=== PATIENT | female | born 1960 | race Caucasian/White ===

== ENCOUNTER → 2018-10-28 | Outpatient (CLI) | payer OTHER ==
--- NOTE | 2018-10-29 16:00 | RAD ---
DATE: 10/28/2018 EXAM: MAMMO RIVKA SCREENING BILATERAL HISTORY: Routine screening COMPARISON: None This study was interpreted with the benefit of Computerized Aided Detection (CAD). Breast Density: SCATTERED The breast parenchyma shows scattered fibroglandular densities. Breast parenchyma level B. FINDINGS: No suspicious calcification cluster. No masses or distortion. IMPRESSION: No suspicious process. BI-RADS CATEGORY: 1 NEGATIVE RECOMMENDED FOLLOW-UP: 12M 12 MONTH FOLLOW-UP PQRS compliance statement: Patient information was entered into a reminder system with a target due date in one year for the next mammogram. Mammography is a sensitive method for finding small breast cancers, but it does not detect them all and is not a substitute for careful clinical examination. A negative mammogram does not negate a clinically suspicious finding and should not result in delay in biopsying a clinically suspicious abnormality. "Our facility is accredited by the [employer] Mammography Program."
== END | disposition home or self-care (01) ==
LOC: MAMMO 09:20
PROVIDERS: ATTEND Family Medicine
DX: Z12.31 Encounter for screening mammogram for malignant neoplasm of breast (principal)
CPT/HCPCS: 77063; 77067

== ENCOUNTER → 2020-03-22 | Outpatient (CLI) | payer OTHER | LOC: LAB 09:42 | PROVIDERS: ATTEND Family Medicine | DX: Z20.828 Contact with and (suspected) exposure to other viral communicable diseases (principal) | CPT/HCPCS: U0003 ==

== ENCOUNTER 2020-03-26 18:04 | Emergency (ER) | payer OTHER ==
[~2020-03-26] VITALS: Ht 165.1 cm; Wt 95.5 kg
[2020-03-26 18:23] VITALS: BP 130/75
--- NOTE | 2020-03-26 18:35 | PHYS DOC ---
General Adult EDM: Chief Complaint: FLANK PAIN HPI: HPI: History obtained from patient. Patient is a 60-year-old female past medical history significant for hysterectomy, appendectomy, kidney stones who presents with chief complaint of right-sided flank pain. Patient states the pain started approximately 1 week ago. States it began slowly. She notes pain started as a cramp but is not sharp in nature. States it is in her right lower back and radiates to her right groin. Notes it feels similar to previous infections and kidney stones. She notes her last kidney stone was almost 10 years ago. She does note nausea with occasional vomiting. She notes an objective temperature of 102.0 yesterday. Has been taking Tylenol at home with some relief. Does note increased urge to void. Does note some mild dysuria and pink-tinged urine. She does note a cough that she has had but states this cough is chronic and that is always present. Denies any known exposure to coronavirus. Denies chest pain or shortness of breath. No syncope. Denies stool changes. No other complaints. Review of Systems: Review of Systems: Constitutional: Denies fever or chills Eyes: Denies change in visual acuity HENT: Denies nasal congestion or sore throat Respiratory: Denies cough or shortness of breath Cardiovascular: Denies chest pain or edema GI: Positive for vomiting : Positive for dysuria, hematuria, increased urge to void Musculoskeletal: Denies back pain or joint pain Integument: Denies rash Neurologic: Denies headache, focal weakness or sensory changes Endocrine: Denies polyuria or polydipsia Lymphatic: Denies swollen glands Psychiatric: Denies depression or anxiety Allergies: Allergies: Allergies Coded Allergies Type Severity Reaction Last Updated Verified acetaminophen Allergy Unknown 03/26/20 Yes naproxen Allergy Unknown 03/26/20 Yes oxycodone Allergy Unknown 03/26/20 Yes Physical Exam: PE: Constitutional: Well developed, well nourished, no acute distress, non-toxic appearance. [] HENT: Normocephalic, atraumatic, bilateral external ears normal, oropharynx moist, no oral exudates, nose normal. [] Eyes: PERRLA, EOMI, conjunctiva normal, no discharge. [] Neck: Normal range of motion, no tenderness, supple, no stridor. [] Cardiovascular:Heart rate regular rhythm, no murmur [] Lungs & Thorax: Bilateral breath sounds clear to auscultation [] Abdomen: Soft, nontender, nonacute abdomen. No involuntary guarding or rigidity noted. No acute peritonitis. Skin: Warm, dry, no erythema, no rash. [] Back: mild right CVA tenderness [] Extremities: No tenderness, no cyanosis, no clubbing, ROM intact, no edema. [] Neurologic: Alert and oriented X 3, normal motor function, normal sensory function, no focal deficits noted. [] Psychologic: Affect normal, judgement normal, mood normal. [] Current Patient Data: Labs: Laboratory Tests Test 03/26/20 19:02 White Blood Count 9.5 x10^3/uL Red Blood Count 4.12 x10^6/uL Hemoglobin 12.4 g/dL Hematocrit 37.3 % Mean Corpuscular Volume 91 fL Mean Corpuscular Hemoglobin 30 pg Mean Corpuscular Hemoglobin Concent 33 g/dL Red Cell Distribution Width 13.4 % Platelet Count 317 x10^3/uL Neutrophils (%) (Auto) 74 % Lymphocytes (%) (Auto) 16 % Monocytes (%) (Auto) 10 % Eosinophils (%) (Auto) 1 % Basophils (%) (Auto) 0 % Neutrophils # (Auto) 7.0 x10^3uL Lymphocytes # (Auto) 1.5 x10^3/uL Monocytes # (Auto) 0.9 x10^3/uL Eosinophils # (Auto) 0.1 x10^3/uL Basophils # (Auto) 0.0 x10^3/uL Urine Collection Type Unknown Urine Color Yellow Urine Clarity Hazy Urine pH 6.0 Urine Specific Orick 1.015 Urine Protein 100 mg/dl Urine Glucose (UA) Neg mg/dL Urine Ketones (Stick) Neg mg/dL Urine Blood Small Urine Nitrite Neg Urine Bilirubin Neg Urine Urobilinogen Dipstick 1.0 mg/dL Urine Leukocyte Esterase Mod Urine RBC 20-40 /HPF Urine WBC Tntc /HPF Urine Squamous Epithelial Cells Few /LPF Urine Bacteria Mod /HPF Current Medications Medications (Trade) Dose Ordered Sig/Edinson Route PRN Reason Start Time Stop Time Status Last Admin Dose Admin Acetaminophen (Tylenol) 1,000 mg 1X ONCE PO 03/26/20 18:45 03/26/20 18:57 DC 03/26/20 19:02 Ondansetron HCl (Zofran Odt) 4 mg 1X ONCE PO 03/26/20 18:45 03/26/20 18:57 DC Ceftriaxone Sodium 1 gm/ Sodium Chloride 50 ml @ 100 mls/hr 1X ONCE IV 03/26/20 20:00 03/26/20 20:29 UNV Vital Signs: Vital Signs Date Time Temp Pulse Resp B/P (MAP) Pulse Ox O2 Delivery O2 Flow Rate FiO2 03/26/20 18:23 98.7 87 18 130/75 (93) 96 Room Air EKG: EKG: [] Radiology/Procedures: Radiology/Procedures: [][address] [address] IMAGING REPORT Signed PATIENT: JONNY CADE ACCOUNT: [id number] : 1960 LOCATION: ER AGE: 60 SEX: F EXAM STATUS: REG ER ORD. PHYSICIAN: ROXY CAI DO REASON: R flank pain. hx stones PROCEDURE: CT ABDOMEN PELVIS WO CONTRAST EXAM: CT Abdomen and Pelvis without IV contrast CLINICAL HISTORY: Right flank pain. hx stones COMPARISON: none TECHNIQUE: Helical CT of the abdomen and pelvis was performed without the administration of IV contrast. Axial, coronal and sagittal reformatted images were generated. ---PQRS compliance statement - One or more of the following individualized dose reduction techniques were utilized for this study: 1. Automated exposure control 2. Adjustment of the mA and/or kV according to patient size 3. Use of iterative reconstruction technique--- FINDINGS: Lack of intravenous contrast limits evaluation of solid organs, vasculature, and lymph nodes. Lower chest: Linear opacities in lower lobes likely scarring/atelectasis. 3 mm right lower lobe lung nodule (series 2 image 11) is seen. Abdomen and pelvis: Liver and biliary system: No focal liver lesion. Gallbladder is normal. No biliary ductal dilatation. Spleen: Unremarkable Pancreas: Unremarkable Adrenal glands: Unremarkable Kidneys: 1.1 cm left lower pole renal calculus is seen. 4 mm right interpolar renal calculus. 9 x 3 mm calculus is seen within the distal right ureter resulting in moderate right hydronephrosis and hydroureter with associated infiltration. Lymph nodes/retroperitoneum: No abdominal or pelvic lymphadenopathy. Vessels: Aorta is normal in caliber with intermittent atherosclerotic calcifications. Bowel/Peritoneal cavity: Moderate colonic stool content is seen. No small or large bowel dilatation. No bowel obstruction. No abdominal or pelvic ascites. Abdominal wall: Trace fat-containing periumbilical hernia. Bladder: Diffuse bladder wall thickening likely cystitis. Bones: Hip joint degenerative changes. Lower lumbar spine degenerative changes. No aggressive osseous lesion IMPRESSION: 1. A 9 x 3 mm distal right ureteral calculus results in moderate right hydronephrosis and hydroureter. Associated periureteral and perinephric infiltration may be reactive or related to superimposed infection and can be correlated with urinalysis. 2. Additional bilateral nonobstructing renal calculi are seen. 3. Diffuse bladder wall thickening likely cystitis. Electronically signed by: Federico Lee MD (03/26/2020 7:40 PM) [facility] DICTATED AND SIGNED BY: FEDERICO LEE MD DATE: 03/26/201939 CC: BENNY WHITT MD; ROXY CAI DO ~MTH0 0 Heart Score: Risk Factors: Risk Factors: DM, Current or recent (<one month) smoker, HTN, HLP, family history of CAD, obesity. Risk Scores: Score 0 - 3: 2.5% MACE over next 6 weeks - Discharge Home Score 4 - 6: 20.3% MACE over next 6 weeks - Admit for Clinical Observation Score 7 - 10: 72.7% MACE over next 6 weeks - Early Invasive Strategies Course & Med Decision Making: Course & Med Decision Making Pertinent Labs and Imaging studies reviewed. (See chart for details) [] Patient is a 60-year-old female who presents with chief complaint of right flank pain. Initial vital signs unremarkable. CT imaging does reveal a 9 x 3 mm kidney stone on the right side with moderate associated hydronephrosis as well as perinephric fat stranding appreciated. Urinalysis does show evidence of infection. Clinically patient also reports symptoms of infection. Patient was given 1 g Rocephin. Mild SANDRA of 1.3 creatinine. The patient does have clinical signs and symptoms for pyelonephritis with associated 9 mm kidney stone in concerned she may need urologic evaluation. Unfortunately we do not have the specialty service at our facility. Case was discussed with Simona Foreman. Patient has been accepted by Dr. Sharma. Patient remained hemodynamically stable while in our emergency department. Dragon Disclaimer: Dragon Disclaimer: This electronic medical record was generated, in whole or in part, using a voice recognition dictation system. Departure Departure: Impression: Primary Impression: Ureterolithiasis Additional Impression: Pyelonephritis Disposition: 02 DC/TRF OTHER SHORT TERM HOS Condition: STABLE Referrals: BENNY WHITT MD (PCP) ROXY CAI DO Mar 26, 2020 18:35
[2020-03-26] MEDS ORDERED: ACETAMINOPHEN 500 MG TABLET PO ONE (18:45)
[2020-03-26] MEDS ORDERED: ONDANSETRON ODT 4 MG TAB.RAPDIS PO ONE (18:45)
[2020-03-26 19:33] LABS: HEMATOCRIT 37.3 % (36.0-47.0); HEMOGLOBIN 12.4 g/dL (12.0-15.5); MEAN CORPUSCULAR HEMOGLOBIN 30 pg (25-35); MEAN CORPUSCULAR HGB CONC 33 g/dL (31-37); MEAN CORPUSCULAR VOLUME 91 fL (79-100); RED BLOOD COUNT 4.12 x10^6/uL (3.50-5.40); WHITE BLOOD COUNT 9.5 x10^3/uL (4.0-11.0)
[2020-03-26 19:34] LABS: BASO % 0 % (0-3); EOS # 0.1 x10^3/uL (0.0-0.7); EOS % 1 % (0-3); LYMPH # 1.5 x10^3/uL (1.0-4.8); LYMPH % 16 % (24-48); MONO # 0.9 x10^3/uL (0.0-1.1); MONO % 10 % (0-9); NEUT % 74 % (31-73); PLATELET COUNT 317 x10^3/uL (140-400); RED CELL DISTRIBUTION WIDTH 13.4 % (11.5-14.5)
--- NOTE | 2020-03-26 19:43 | RAD ---
EXAM: CT Abdomen and Pelvis without IV contrast CLINICAL HISTORY: Right flank pain. hx stones COMPARISON: none TECHNIQUE: Helical CT of the abdomen and pelvis was performed without the administration of IV contrast. Axial, coronal and sagittal reformatted images were generated. ---PQRS compliance statement - One or more of the following individualized dose reduction techniques were utilized for this study: 1. Automated exposure control 2. Adjustment of the mA and/or kV according to patient size 3. Use of iterative reconstruction technique--- FINDINGS: Lack of intravenous contrast limits evaluation of solid organs, vasculature, and lymph nodes. Lower chest: Linear opacities in lower lobes likely scarring/atelectasis. 3 mm right lower lobe lung nodule (series 2 image 11) is seen. Abdomen and pelvis: Liver and biliary system: No focal liver lesion. Gallbladder is normal. No biliary ductal dilatation. Spleen: Unremarkable Pancreas: Unremarkable Adrenal glands: Unremarkable Kidneys: 1.1 cm left lower pole renal calculus is seen. 4 mm right interpolar renal calculus. 9 x 3 mm calculus is seen within the distal right ureter resulting in moderate right hydronephrosis and hydroureter with associated infiltration. Lymph nodes/retroperitoneum: No abdominal or pelvic lymphadenopathy. Vessels: Aorta is normal in caliber with intermittent atherosclerotic calcifications. Bowel/Peritoneal cavity: Moderate colonic stool content is seen. No small or large bowel dilatation. No bowel obstruction. No abdominal or pelvic ascites. Abdominal wall: Trace fat-containing periumbilical hernia. Bladder: Diffuse bladder wall thickening likely cystitis. Bones: Hip joint degenerative changes. Lower lumbar spine degenerative changes. No aggressive osseous lesion IMPRESSION: 1. A 9 x 3 mm distal right ureteral calculus results in moderate right hydronephrosis and hydroureter. Associated periureteral and perinephric infiltration may be reactive or related to superimposed infection and can be correlated with urinalysis. 2. Additional bilateral nonobstructing renal calculi are seen. 3. Diffuse bladder wall thickening likely cystitis. Electronically signed by: Federico Georges MD (03/26/2020 7:40 PM) [facility]
[2020-03-26 19:56] LABS: BILIRUBIN,URINE NEG (NEG); CLARITY,URINE HAZY; COLOR,URINE YELLOW; GLUCOSE,URINE NEG (NEG)
[2020-03-26 19:57] LABS: BACTERIA,URINE MOD /HPF (0-FEW); NITRITE,URINE NEG (NEG); RBC,URINE 20-40 /HPF (0-2); SQUAMOUS EPITHELIAL CELL,UR FEW /LPF; WBC,URINE TNTC /HPF (0-4)
[2020-03-26 20:08] LABS: ALBUMIN 2.3 g/dL (3.4-5.0); ALBUMIN/GLOBULIN RATIO 0.4 (1.0-1.7); CALCIUM 8.9 mg/dL (8.5-10.1); CREATININE 1.3 mg/dL (0.6-1.0); GFR 41.8; TOTAL BILIRUBIN 0.4 mg/dL (0.2-1.0); TOTAL PROTEIN 8.2 g/dL (6.4-8.2)
[2020-03-26 20:09] LABS: POTASSIUM 3.4 mmol/L (3.5-5.1)
[2020-03-26] MEDS ORDERED: cefTRIAXone SODIUM 1 GM VIAL ONE (23:00)
[2020-03-26] MEDS ORDERED: IV NORMAL SALINE 50ML 50 ML ONE (23:00)
== END 2020-03-26 23:44 | disposition short-term general hospital (02) ==
LOC: ER 18:04
DX: N13.2 Hydronephrosis with renal and ureteral calculous obstruction (principal); N12 Tubulo-interstitial nephritis, not specified as acute or chronic; Z87.440 Personal history of urinary (tract) infections; Z90.710 Acquired absence of both cervix and uterus; Z90.89 Acquired absence of other organs; Z88.5 Allergy status to narcotic agent; Z88.8 Allergy status to other drugs, medicaments and biological substances
CPT/HCPCS: 36415; 74176; 80053; 81001; 83690; 85025; 87077; 87086; 87186; 96365; 99285; J0696; 99284-25